=== PATIENT | female | born 1995 | race Caucasian/White ===

== ENCOUNTER → 2019-04-07 | Outpatient (CLI) | payer BC, MEDICAID ==
--- NOTE | 2019-04-07 13:11 | Diagnostic Imaging Report ---
INDICATION: patient, survey. TECHNIQUE: Multiple real-time grayscale images were obtained over the gravid uterus. COMPARISON: None FINDINGS: A single live intrauterine fetus is seen measuring 20 weeks 2 days in size with sonographic EDC of 08/23/2019. Fetus is in breech presentation. Amniotic fluid index is normal at 12.1 cm. Placenta is posterior with no evidence of previa. heart rate is 152 BPM. There is no evidence of subchorionic bleed. Cervical length was 4.4 cm. survey showed normal-appearing kidneys, bladder, stomach, and intracranial ventricles. Normal-appearing four-chamber heart view is seen. Normal-appearing three-vessel cord and cord insertion are noted. Views of the spine were unremarkable. The adnexa could not be visualized. Biometrical measurements are as follows: Biparietal 4.53 cm, age 19 weeks 5 days. Head circumference 17.73 cm, age 22 weeks 0 days. Abdominal circumference 15.12 cm, age 23 weeks 0 days. Femur length 3.31 cm, age 20 weeks 3 days. Sonographic estimate age: 20 weeks 2 days. Sonographic estimated date of delivery: 08/23/2019. Estimated Weight: 346 gm (+/- 51 gm). LMP percentile: 47%. heart rate: 152 beats per minute. number: 1 of 1. IMPRESSION: Single live intrauterine fetus measuring 20 weeks 2 days in size with no detectable abnormalities. Dictated by: Dictated on workstation # [id number]
== END ==
LOC: RAD 10:01
PROVIDERS: ATTEND Obstetrics & Gynecology
DX: Z36.9 Encounter for antenatal screening, unspecified (principal); Z3A.20 20 weeks gestation of pregnancy
CPT/HCPCS: 76805

== ENCOUNTER 2019-08-19 11:19 | Inpatient (IN) | payer BC ==
[~2019-08-19] VITALS: Ht 160 cm; Wt 76.3 kg
[2019-08-19] VITALS (41 sets, daily range): BP systolic 103–152; BP diastolic 55–97
--- NOTE | 2019-08-19 11:07 | NUR ---
RAEANN FLYNN presented to unit via ambulation from ED, accompanied by s/o, with c/o contractions since 199 this a.m. Pt. weighed, gowned, voided, and to bed. EFHM and TOCO applied, VS taken. Pt. oriented to bed controls, call light, TV, heat, and A/C controls.
--- NOTE | 2019-08-19 11:29 | NUR ---
SVE per this RN. loose 3cm, 100%, bag of fluid noted with exam. small amount bloody show present with SVE
--- NOTE | 2019-08-19 11:34 | NUR ---
was called with SVE, monitor tracing and admit c/o's. no new orders received @ time.
--- NOTE | 2019-08-19 11:51 | NUR ---
ULISES per . admission orders received.
[2019-08-19] MEDS ORDERED: D5 LR IV SOLUTION 1,000 ML IV SCH (12:00)
[2019-08-19] MEDS ORDERED: LACTATED RINGERS 1,000 ML IV ONE ×2 (12:05)
[2019-08-19] MEDS ORDERED: D5 LR IV SOLUTION 1,000 ML IV ONE (12:05)
--- NOTE | 2019-08-19 12:20 | NUR ---
#20g IV to Rt.hand x2 attempts by this RN. site patent, secured with opsite. admission labs collected from IV site prior to IVF's infusing. pt tolerated well.
--- NOTE | 2019-08-19 12:34 | History & Physical-OB ---
OB - Chief Complaint & HPI Date/Time Date of Admission: Date of Admission: 08/19/2019 Date seen by a Provider: August 19, 2019 Time Seen by a Provider: 12:00 Chief Complaint/History OB-Reason for Admission/Chief: Onset of Labor Hx : 1 Hx Para: 0 Expected Date of Delivery: August 23, 2019 Gestational Age in Weeks: 39 Gestational Age in Days: 3 Admission Nurse Assessment Rev: Yes History of Labs O pos Antibody neg RI RPR NR HBsAg NR HCsAg NR HIV NR GC neg GBS neg Allergies and Home Medications Allergies Coded Allergies: No Known Drug Allergies (Unverified , 08/19/19) Patient Home Medication List Home Medication List Reviewed: Yes OB - History Hx of Present Care: Yes Ultrasounds: Normal mid trimester US Obstetrical Complications: None Medical Complications: None Obstetrical History Hx : 1 Hx Para: 0 Patient Past Medical History n/a Social History/Family History Recreational Drug Use: No OB - Admission Exam Physical Exam Vitals: Vital Signs 08/19/19 11:23 Temp 37.0 Pulse 120 Resp 18 Pulse Ox 96 O2 Delivery Room Air HEENT: NCAT Heart: Rhythm Normal Lungs: Clear Abdomen: Gravid Extremities: Normal Reflexes: Normal Cervical Dilatation: 3cm Effacement: 75% Station: -1 Membranes: Intact Heart Rate: 130's Accelerations: Accelerations Present Decelerations: No Decelerations Short Term Variability: Present Client Services Director Variability: Average (6-25) Contractions on Admission: < 5 Minutes Apart OB - Assessment/Plan/Diagnosis Assessment Assessment: active labor Admission Dx 24 yo @ 39.3 weeks Active labor GBS neg Admission Status: Inpatient Order (span 2 midnights) Reason for Inpatient Admission: Active labor at term Plan Plan: Expectant Management LEATHA FULLER DO August 19, 2019 12:34
--- NOTE | 2019-08-19 12:35 | NUR ---
report given to SHEY García.
[2019-08-19] MEDS ORDERED: OXYTOCIN PRE-MIX DRIP 500 ML IV SCH (12:39)
[2019-08-19 12:40] LABS: BASOPHILS % (AUTO) 0 % (0-10); EOSINOPHILS % (AUTO) 0 % (0-10); HEMATOCRIT 36 % (35-52); HEMOGLOBIN 12.5 G/DL (11.5-16.0); LYMPHOCYTES # (AUTO) 1.5 X 10^3 (1.0-4.0); LYMPHOCYTES % (AUTO) 10 % (12-44); MEAN CORPUSCULAR HEMOGLOBIN 32 PG (25-34); MEAN CORPUSCULAR HGB CONC 35 G/DL (32-36); MEAN CORPUSCULAR VOLUME 93 FL (80-99); MEAN PLATELET VOLUME 10.2 FL (7.4-10.4); MONOCYTES # (AUTO) 0.9 X 10^3 (0.0-1.0); MONOCYTES % (AUTO) 6 % (0-12); NEUTROPHILS # (AUTO) 12.6 X 10^3 (1.8-7.8); NEUTROPHILS % (AUTO) 84 % (42-75); PLATELET COUNT 188 10^3/uL (130-400); RED CELL DISTRIBUTION WIDTH 12.6 % (10.0-14.5)
[2019-08-19 12:45] LABS: BILIRUBIN,URINE NEGATIVE (NEGATIVE); CLARITY,URINE CLEAR; COLOR,URINE YELLOW; GLUCOSE, URINE (UA) NEGATIVE (NEGATIVE); KETONES,URINE NEGATIVE (NEGATIVE); LEUKOCYTE ESTERASE ,URINE NEGATIVE (NEGATIVE); NITRITE,URINE NEGATIVE (NEGATIVE); PH,URINE 5.5 (5-9); PROTEIN,URINE NEGATIVE (NEGATIVE)
[2019-08-19] MEDS ORDERED: fentaNYL 2 mcg/ml BUPIVA 0.125 100 ML ONE (12:52)
[2019-08-19 12:57] LABS: LYMPHOCYTES % (MANUAL) 7 %; MONOCYTES % (MANUAL) 7 %; NEUTROPHILS % (MANUAL) 85 %; RBC MORPH NORMAL
[2019-08-19 12:58] LABS: TOXIC GRANULATION/VACUOLAZATIO 1+
[2019-08-19 13:03] LABS: BACTERIA,URINE TRACE /HPF; SQUAMOUS EPITHELIAL CELL,UR 0-2 /HPF
--- OUTSIDE RECORDS SUMMARY | 2019-08-19 13:11 | XMS REPORT | Continuity of Care Document ---
Demographics Preferred Language Unknown Marital Status Unknown Worship Affiliation Unknown Race Unknown Ethnic Group Unknown Author Organization Unknown Address Unknown Phone Unavailable Allergies There is no data. Medications There is no data. Problems Date Dx Coded Attending Type Code Diagnosis Diagnosed By 07/21/2014 EITAN LUCIA MD Ot 346.9 0 04/06/2019 EITAN LUCIA MD Ot 346.9 0 MIGRAINE UNSPECIFIED W/O INTRACT MGRN W/ 04/07/2019 EITAN LUCIA MD Ot 346.9 0 MIGRAINE UNSPECIFIED W/O INTRACT MGRN W04/08/2019 LEATHA FULLER DO Ot Z36.9 ENCOUNTER FOR SCREENING, UNSPE 04/08/2019 LEATHA FULLER DO Ot Z3A.20 20 WEEKS GESTATION OF 04/21/2019 LEATHA FULLER DO Ot Z36.9 ENCOUNTER FOR SCREENING, UNSPE 04/21/2019 LEATHA FULLER DO Ot Z3A.20 20 WEEKS GESTATION OF Procedures There is no data. Results Test Result Range Pap IG, Ct-Ng, rfx HPV ASCU - 05/18/17 1 5:40 Chlamydia, Nuc. Acid Amp Positive Negat ilana Gonococcus, Nuc. Acid Amp Negative Nega tive DIAGNOSIS: Comment Specimen adequacy: Comment Performed by: Comment QC reviewed by: Comment . . Pathologist provided ICD10: Comment Note: Comment Test Methodology: Comment . Comment Chlamydia/GC Amplification - 06/22/17 13 :30 Chlamydia trachomatis, DARON Negative Neg ative Neisseria gonorrhoeae, DARON Negative Neg ative Complete blood count (CBC) with automate d white blood cell (WBC) differential - 08/19/19 12:20 Blood leukocytes automated count (number/volume) 15.0 10*3/uL 4.3-11.0 Blood erythrocytes automated count (number/volume) 3.88 10*6/uL 4.35-5.85 Venous blood hemoglobin measurement (mass/volume) 12.5 g/dL 11.5-16.0 Blood hematocrit (volume fraction) 36 % 35-52 Automated erythrocyte mean corpuscular volume 93 [ foz_us] 80-99 Automated erythrocyte mean corpuscular h emoglobin (mass per erythrocyte) 32 pg 25-34 Automated erythrocyte mean corpuscular h emoglobin concentration measurement (mass/volume) 35 g/dL 32-36 Automated erythrocyte distribution width ratio 12. 6 % 10.0- 14.5 Automated blood platelet count (count/volume) 188 10*3/uL 130-400 Automated blood platelet mean volume measurement 10.2 [foz_us] 7.4-10.4 Automated blood neutrophils/100 leukocytes 84 % 42-75 Automated blood lymphocytes/100 leukocytes 10 % 12-44 Blood monocytes/100 leukocytes 6 % 0-12 Automated blood eosinophils/100 leukocytes 0 % 0-10 Automated blood basophils/100 leukocytes 0 % 0-10 Blood neutrophils automated count (number/volume) 12.6 10*3 1.8-7.8 Blood lymphocytes automated count (number/volume) 1.5 10*3 1.0-4.0 Blood monocytes automated count (number/volume) 0. 9 10*3 0.0-1.0 Automated eosinophil count 0.0 10*3/uL 0 .0-0.3 Automated blood basophil count (count/volume) 0.0 10*3/uL 0.0-0.1 Manual absolute plasma cell count - 05/0 05/09 12:20 Blood monocytes/100 leukocytes 7 % NRG Manual blood segmented neutrophils/100 leukocytes 85 % NRG Manual blood lymphocytes/100 leukocytes 7 % NRG Blood erythrocyte morphology finding identification NORMAL NRG Blood toxic granules detection by light microscopy 1+ NRG Complete urinalysis with reflex to cultu re - 08/19/19 12:20 Urine color determination YELLOW NRG Urine clarity determination CLEAR NR G Urine pH measurement by test strip 5.5 5-9 Specific gravity of urine by test strip 1.025 1.016-1.022 Urine protein assay by test strip, semi-quantitative NEGATIVE NEGATIVE Urine glucose detection by automated test strip NE GATIVE NEGATIVE Erythrocytes detection in urine sediment by light micr oscopy NEGATIVE NEGATIVE Urine ketones detection by automated test strip NE GATIVE NEGATIVE Urine nitrite detection by test strip NEGATIVE NEGATIVE Urine total bilirubin detection by test strip NEGA TIVE NEGATIVE Urine urobilinogen measurement by automated test strip (mass/volume) 0.2 mg/dL < = 1.0 Urine leukocyte esterase detection by dipstick NEG ATIVE NEGATIVE Automated urine sediment erythrocyte cou nt by microscopy (number/high power field) NONE NRG Automated urine sediment leukocyte count by microscopy (number/high power field) NONE NRG Bacteria detection in urine sediment by light microsco py TRACE NRG Squamous epithelial cells detection in u rine sediment by light microscopy 0-2 NRG Crystals detection in urine sediment by light microsco py NONE NRG Casts detection in urine sediment by light microscopy NONE NRG Mucus detection in urine sediment by light microscopy SMALL NRG Complete urinalysis with reflex to culture NO NRG Blood type T Indirect antibody screen pa marlo - 08/19/19 12:20 WRISTBAND NUMBER [id number] NRG ABO+Rh group OP NRG Blood group antibody screen NEGATIVE NR G Encounters ACCT No. Visit Date/Time Discharge Status Pt. Type Provider Facility Loc./Unit Complaint [id number] 05/23/2017 13:12:00 Document Registration [id number] 04/07/2019 10:01:00 019 23:59:59 CLS Outpatient LEATHA FULLER DO Via [facility] RAD [id number] 07/10/2014 08:51:00 015 23:59:59 CLS Outpatient EITAN LUCIA MD [facility] RT MIGRAINE HEADACHES [id number] 08/19/2019 12:41:00 Document Registration [id number] 06/25/2017 09:24:00 Document Registration
--- OUTSIDE RECORDS SUMMARY | 2019-08-19 13:11 | XMS REPORT ---
Author Author [employer] Organization [employer] Address [address] [address] Care Team Providers Care Dispensary Technician Name Role Phone BI, WILFRIDO Unavailable Unavailable BI, WILFRIDO Unavailable Unavailable BI, WILFRIDO Unavailable Unavailable EITAN LUCIA MD Unavailable FENCELESTINO DO, LEATHA S Unavailable Unavailable Allergies No Information Medications No Information Problems Problem Normalized Date of Normalized Normalized Provider Fac ility Classification Problem(s) Problem Problem Problem Sta tus Onset/Resoluti Duration on Residual 20 weeks Episodic Active LEATHA LIRIANOCELESTINO [facility] Via codes; gestation of , DO [place] unclassified [facility] - (2 sources.) [place] ([address]) Immunizations Contact with Episodic Active [facility] ospital and screening or exposure to [place] of for infectious venereal [place] disease (2 diseases [place] ([address]) sources.) Other Encounter for Episodic Active [facility] ital screening for other [place] of suspected screening for [place] conditions malignant [place] ([address]) (not mental neoplasm of disorders or breast infectious Translations: disease) (6 [ OTHER sources.) SCREENING BREAST EXAMINATION, ENCOUNTER FOR SCREENING, UNSPE] Contraceptive Encounter for Episodic Active [facility] and surveillance [place] of procreative of [place] management (4 contraceptive [place] ([address]) sources.) pills Translations: [ ENCOUNTER FOR SURVEILLANCE OF CONTRACEPTIVE PILL] Headache; Migraine, Chronic Active EITAN LUCIA [facility] Via including unspecified, MD [place] migraine (2 without Hospital - sources.) mention of [place] intractable ([address]) migraine without mention of status migrainosus Procedures No Information Immunizations No Information Results Test Name Value Interpretation Reference Range Date Time Fa cility (Normalized) (Normalized) (Medline Reference) No panel information on 2017-06-25 C. trachomatis no information (no code) 06-25-2017 [facility] ([id number]) DNA DARON+probe Ql 08:31-0500 (Unsp spec) N. gonorrhoeae no information (no code) 06-25-2017 [facility] ([id number]) DNA DARON+probe Ql 08:31-0500 (Unsp spec) No panel information on 2017-05-23 C. trachomatis no information (A) 05-23-2017 [facility] ([id number]) DNA DARON+probe Ql 12:59-0500 (Unsp spec) N. gonorrhoeae no information (no code) 05-23-2017 [facility] ([id number]) DNA DARON+probe Ql 12:59-0500 (Unsp spec) No panel information on 2017-05-22 Fitness Manager Cyto Comment (no code) 05-22-2017 [facility] (0 0000) stain ID Nom 16:06-0500 (Cervical or vaginal smear or scraping) Cytology report Comment (no code) 05-22-2017 [facility] (0 0000) Cyto stain.thin 16:06-0500 prep Doc (Cervical or vaginal smear or scraping) Microscopic . (no code) 05-22-2017 [facility] ([id number] ) observation 16:06-0500 Note: Comment (no code) 05-22-2017 [facility] ([id number] ) 16:06-0500 Pathologist Comment (no code) 05-22-2017 [facility] ([id number] ) provided ICD10: 16:06-0500 Pathology report Comment (no code) 05-22-2017 [facility] ( [id number]) final diagnosis 16:06-0500 Narrative QC reviewed by: Comment (no code) 05-22-2017 [facility] (0 0000) 16:06-0500 Statement of Comment (no code) 05-22-2017 [facility] (0000 0) adequacy Cyto 16:06-0500 stain Interp (Cervical or vaginal smear or scraping) no information Comment (no code) 05-22-2017 [facility] (00 000) 16:06-0500 Vital Signs No Information Interventions No Information Plan of Treatment No Information Goals No Information Social History No Information Functional Status No Information Mental Status No Information Encounters Encounter Normalized Encounter Encounter Diagnosis Care Provi avinash Organization Date Type 04-07-2019 Patient encounter no information no name (no phone) no organization name procedure (no phone) 05-18-2017 Patient encounter no information no name (no phone) no organization name - procedure (no phone) 05-19-2017 07-10-2014 Patient encounter no information no name (no phone) no organization name procedure (no phone) no information Encounter for no name (no phone) no organiza tion name gynecological (no phone) examination (general) (routine) with abnormal findings Medical Equipment No Information Payers Normalized Payer Value [facility] [place] no information Additional Source Comments This clinical document has been generated using [employer] software that has been certified by the Office of the National Coordinator for Health Information Technology (ONC 15.99.04.3023.Diam.[id number]) and the National Committee for Emergency Medicine (NCQA, as an eMeasure certified technology). FOR RECORDS PERTAINING TO PATIENTS WHO ARE OR HAVE BEEN ENROLLED IN A CHEMICAL D EPENDENCY/SUBSTANCE ABUSE PROGRAM, SOME INFORMATION MAY BE OMITTED. This clinica l summary was aggregated from multiple sources. Caution should be exercised in using it in the provision of clinical care. This summary normalizes information from multiple sources, and as a consequence, information in this document may ma terially change the coding, format and clinical context of patient data. In adrian tion, data may be omitted in some cases. CLINICAL DECISIONS SHOULD BE BASED ON T HE PRIMARY CLINICAL RECORDS. TRA. provides no warranty or guara ntee of the accuracy or completeness of information in this document.The followi ng information is based on time limited clinical information
[2019-08-19] MEDS ORDERED: fentaNYL 2 mcg/ml BUPIVA 0.125 100 ML IV SCH (14:00)
[2019-08-19] MEDS ORDERED: NALOXONE 0.4 MG/ML 1 ML (NARCAN) VIAL IV PRN (14:00)
[2019-08-19] MEDS ORDERED: CATHETER FLUSH 10 ML SYR IV PRN (14:00)
[2019-08-19] MEDS ORDERED: LIDOCAINE/EPI 2% 1:200,00 (XYLOCAINE) 20 ML VIAL ONE (14:56)
[2019-08-19] MEDS ORDERED: LIDOCAINE/EPI 2% 1:200,00 (XYLOCAINE) 20 ML VIAL INJ ONE (16:50)
[2019-08-19] MEDS: OXYTOCIN PRE-MIX DRIP 500 ML IV SCH ×2 (17:10→17:45)
--- NOTE | 2019-08-19 17:55 | OB Labor & Delivery Record ---
L&D History Date of Service Date of Service: August 19, 2019 History Expected Date of Delivery: August 23, 2019 Gestational Age in Weeks: 39 Hx : 1 Hx Para: 0 Complications Events: Routine care Operative Indications (Cesarea: N/A-Vaginal Delivery Intrapartal Events: None L&D Stage1 Stage One Onset of Labor - Date: August 19, 2019 Monitors and Tracing Monitor Mode: External Heart Rate: 140 Monitor Decelerations: Variable Station: -1 Service Girl Variability: Average (6-10) Short Term Variability: Present Presentation: Vertex Vital Signs VS - Last 72 Hours, by Label 08/19/19 08/19/19 08/19/19 08/19/19 11:20 11:20 11:23 12:43 Temp 37.0 37.0 37.0 36.9 Pulse 120 120 120 99 Resp 18 18 18 18 B/P (MAP) 112/72 (85) 106/70 (82) Pulse Ox 96 96 98 O2 Delivery Room Air Room Air Room Air Room Air 08/19/19 08/19/19 08/19/19 08/19/19 13:11 13:40 13:53 14:00 Temp 36.9 Pulse 101 91 102 Resp 18 18 18 B/P (MAP) 122/71 (88) 122/77 (92) 116/69 (85) Pulse Ox 99 100 O2 Delivery Room Air Room Air Room Air Room Air 08/19/19 08/19/19 08/19/19 08/19/19 14:02 14:04 14:05 14:08 Pulse 103 103 99 105 Resp 18 18 18 18 B/P (MAP) 117/66 (83) 116/66 (83) 112/68 (83) 117/72 (87) Pulse Ox 99 100 100 100 O2 Delivery Room Air Room Air Room Air Room Air 08/19/19 08/19/19 08/19/19 08/19/19 14:11 14:14 14:17 14:20 Pulse 91 84 96 92 Resp 18 18 18 18 B/P (MAP) 113/68 (83) 106/60 (75) 106/66 (79) 107/65 (79) Pulse Ox 100 100 100 100 O2 Delivery Room Air Room Air Room Air Room Air 5/1/20 5/1/20 5/1/20 14:23 14:26 14:29 Pulse 89 85 88 Resp 18 18 18 B/P (MAP) 110/67 (81) 115/70 (85) 116/72 (87) Pulse Ox 100 100 100 O2 Delivery Non Rebreather Non Rebreather Non Rebreather O2 Flow Rate 15.00 15.00 15.00 Rupture of Membranes Spontaneous Ruture of Membrane: No Amniotic Membrane Rupture Time: 12:30 Amniotic Membrane Fluid Desc.: Clear Vaginal Bleeding Description: Normal Show Induction/Anesthesia Epidural Cath Placement - Time: 1358 Progress/Notes No augmentation other than AROM done, patient progressed to complete and + 2 station L&D Stage2 Stage Two Stage II Date: August 19, 2019 Monitors and Tracing Monitor Mode: External Heart Rate: 140 Monitor Decelerations: Prolonged Senior Living Variability: Average (6-10) Short Term Variability: Present Position: Right Occiput Anterior Presentation: Vertex Cord Descript/Complications Cord Vessel Description: 3 Vessels Complications Due to distress and limited effectiveness with maternal pushing, fhr in the 70s. RML made, and kiwi suction applicator placed at flexion point which assisted in low extraction delivery. nuchal cord x 1 Delivery Type Infant Delivery Method: Low Vacuum Extraction Anterior Shoulder: Right Episiotomy/Perineal Laceration Laceraction(s)/Extensions: Yes Episiotomy Description: Right Mediolateral Degree (describe repair) RML repaired using 3-0 and 2-0 vicryl suture Condition of Delivery 1 minute Comment: 7 5 minute Comment: 9 Notes Live male 9lbs 3 oz Condition of Condition of : Living Exam: No Observed Abnormalities Resuscitation Resuscitation: N/A - Spontaneous Resp L&D Stage3 Stage Three Stage III Date: August 19, 2019 Pictocin Pitocin Administration Comment: 30 mu wide open Placenta Delivery Placenta Delivery: Spontaneous Delivery Summary Summary Estimated blood loss (mL): 400 Attending at delivery: Leatha Fuller DO Condition of Delivery Examined: Cervix Examined, Uterus Explored Post Hemorrhage: No Condition of Mother stable Condition of (s) stable LEATHA FULLER DO August 19, 2019 17:55
[2019-08-19] MEDS ORDERED: TETANUS,DIPTH,PERTUSS P/F (BOOSTRIX) 0.5 ML VIAL IM ONE (18:00)
[2019-08-19] MEDS ORDERED: HYDROcodone/APAP 5 MG/325 MG (LORTAB) TAB PO PRN (18:00)
[2019-08-19] MEDS ORDERED: DIBUCAINE (NUPERCAINAL) 1% OINT 30 GM TOP PRN (18:00)
[2019-08-19] MEDS ORDERED: MEASLES,MUMPS,RUBELLA 1 EA INJ SQ ONE (18:00)
[2019-08-19] MEDS ORDERED: BENZOCAINE/MENTHOL (DERMOPLAST) 60 ML CAN TP PRN (18:00)
[2019-08-19] MEDS: IBUPROFEN 600 MG (MOTRIN) TAB PO SCH (18:05)
[2019-08-19] MEDS: WITCH HAZEL(TUCKS) 40 EA JAR TOP PRN (18:06)
--- NOTE | 2019-08-19 19:13 | NUR ---
TRANSFERRED TO ROOM 311 VIA W/C ACC BY THIS RN, S.O. PUSHING INFANT IN CRIB. ASSISTED TO BED. ICE PACK PLACED ON PERINEUM. FF U/1. VAG FLOW LT/MOD RUBRA. ORIENTED TO SURROUNDINGS. ORIENTED TO CALL LIGHT OPERATION. INFORMATION PAPERS AND MENU GIVEN.
[2019-08-19] MEDS: DOCUSATE SODIUM 100 MG (COLACE) CAP PO SCH (20:16)
--- NOTE | 2019-08-19 20:45 | NUR ---
Pt. ambulated to bathroom without difficulty. Positive void noted.
[2019-08-19] MEDS ORDERED: CATHETER FLUSH 10 ML SYR IV SCH (22:00)
[2019-08-20] MEDS: IBUPROFEN 600 MG (MOTRIN) TAB PO SCH ×4 (00:28→18:39)
[2019-08-20 00:33] VITALS: BP 98/57
[2019-08-20 04:00] VITALS: BP 106/63
[2019-08-20 06:34] LABS: BASOPHILS % (AUTO) 0 % (0-10); EOSINOPHILS % (AUTO) 0 % (0-10); HEMATOCRIT 27 % (35-52); HEMOGLOBIN 9.2 G/DL (11.5-16.0); LYMPHOCYTES # (AUTO) 1.7 X 10^3 (1.0-4.0); LYMPHOCYTES % (AUTO) 12 % (12-44); MEAN CORPUSCULAR HEMOGLOBIN 32 PG (25-34); MEAN CORPUSCULAR HGB CONC 34 G/DL (32-36); MEAN CORPUSCULAR VOLUME 95 FL (80-99); MEAN PLATELET VOLUME 10.4 FL (7.4-10.4); MONOCYTES # (AUTO) 1.4 X 10^3 (0.0-1.0); MONOCYTES % (AUTO) 10 % (0-12); NEUTROPHILS # (AUTO) 10.5 X 10^3 (1.8-7.8); NEUTROPHILS % (AUTO) 77 % (42-75); PLATELET COUNT 149 10^3/uL (130-400); RED CELL DISTRIBUTION WIDTH 12.7 % (10.0-14.5); WHITE BLOOD COUNT 13.6 10^3/uL (4.3-11.0)
--- NOTE | 2019-08-20 07:47 | Postpartum Progress Note ---
Note Note Day # 1 Subjective: Patient is without complaints. Ambulating, voiding. Tolerating a regular diet without nausea or vomiting. Normal lochia. Pain is well controlled with oral pain medications. Objective: Physical Exam: General - Alert and oriented, no apparent distress Abdomen - Soft, appropriately tender to palpation, non-distended, fundus firm at umbilicus Extremities - no edema, negative Justin's bilaterally Assessment: PPD 1 VAVD Acute blood loss anemia Plan: Routine care. Encourage breast feeding. Encourage ambulation. Ferrous sulfate supplementation. Plan for discharge tomorrow Vitals - Labs Vital Signs - I&O Vital Signs Date Time Temp Pulse Resp B/P (MAP) Pulse Ox O2 Delivery O2 Flow Rate FiO2 08/20/19 04:00 36.8 108 16 106/63 (77) 97 Room Air 08/20/19 00:33 36.9 105 16 98/57 (71) 98 Room Air 08/19/19 20:15 37.2 110 16 110/64 (79) 97 Room Air 08/19/19 18:51 37.8 120 18 110/66 (81) Room Air 08/19/19 18:45 121 18 103/58 (73) Room Air 08/19/19 18:22 106 18 111/61 (78) Room Air 08/19/19 18:04 37.3 110 18 107/59 (75) Room Air 08/19/19 17:42 116 18 110/62 (78) Room Air 08/19/19 17:28 92 18 114/78 (90) Room Air 08/19/19 17:15 116 18 111/58 (75) Room Air 08/19/19 17:00 120 20 104/55 (71) Room Air 08/19/19 16:43 112 20 152/97 (115) Non Rebreather 15.00 08/19/19 16:28 93 18 107/70 (82) 97 Non Rebreather 15.00 08/19/19 16:15 95 18 109/70 (83) 100 Non Rebreather 15.00 08/19/19 15:58 37.1 90 18 110/62 (78) 100 Non Rebreather 15.00 08/19/19 15:43 90 18 119/67 (84) 98 Non Rebreather 15.00 08/19/19 15:30 90 18 119/62 (81) 99 Room Air 08/19/19 15:24 Room Air 08/19/19 15:12 90 18 118/72 (87) 100 Non Rebreather 15.00 08/19/19 14:58 93 18 116/70 (85) 100 Non Rebreather 15.00 08/19/19 14:54 94 18 117/71 (86) 100 Non Rebreather 15.00 08/19/19 14:50 86 18 118/72 (87) 100 Non Rebreather 15.00 08/19/19 14:43 93 18 123/71 (88) 100 Non Rebreather 15.00 08/19/19 14:40 36.8 86 18 114/71 (85) 100 Non Rebreather 15.00 08/19/19 14:37 90 18 112/72 (85) 100 Non Rebreather 15.00 08/19/19 14:34 91 18 112/68 (83) 100 Non Rebreather 15.00 08/19/19 14:31 85 18 114/69 (84) 100 Non Rebreather 15.00 08/19/19 14:29 88 18 116/72 (87) 100 Non Rebreather 15.00 08/19/19 14:26 85 18 115/70 (85) 100 Non Rebreather 15.00 08/19/19 14:23 89 18 110/67 (81) 100 Non Rebreather 15.00 08/19/19 14:20 92 18 107/65 (79) 100 Room Air 08/19/19 14:17 96 18 106/66 (79) 100 Room Air 08/19/19 14:14 84 18 106/60 (75) 100 Room Air 08/19/19 14:11 91 18 113/68 (83) 100 Room Air 08/19/19 14:08 105 18 117/72 (87) 100 Room Air 08/19/19 14:05 99 18 112/68 (83) 100 Room Air 08/19/19 14:04 103 18 116/66 (83) 100 Room Air 08/19/19 14:02 103 18 117/66 (83) 99 Room Air 08/19/19 14:00 102 18 116/69 (85) 100 Room Air 08/19/19 13:53 36.9 99 Room Air 08/19/19 13:40 91 18 122/77 (92) Room Air 08/19/19 13:11 101 18 122/71 (88) Room Air 08/19/19 12:43 36.9 99 18 106/70 (82) 98 Room Air 08/19/19 11:23 37.0 120 18 96 Room Air 08/19/19 11:20 37.0 120 18 112/72 (85) Room Air 08/19/19 11:20 37.0 120 18 96 Room Air I & O 08/20/19 07:00 Intake Total 3000 ml Output Total 125 ml Balance 2875 ml Labs Laboratory Tests 08/19/19 12:20: White Blood Count 15.0H, Red Blood Count 3.88L, Hemoglobin 12.5, Hematocrit 36, Mean Corpuscular Volume 93, Mean Corpuscular Hemoglobin 32, Mean Corpuscular Hemoglobin Concent 35, Red Cell Distribution Width 12.6, Platelet Count 188, Mean Platelet Volume 10.2, Neutrophils (%) (Auto) 84H, Lymphocytes (%) (Auto) 10L, Monocytes (%) (Auto) 6, Eosinophils (%) (Auto) 0, Basophils (%) (Auto) 0, Neutrophils # (Auto) 12.6H, Lymphocytes # (Auto) 1.5, Monocytes # (Auto) 0.9, Eosinophils # (Auto) 0.0, Basophils # (Auto) 0.0, Neutrophils % (Manual) 85, Lym phocytes % (Manual) 7, Monocytes % (Manual) 7, Toxic Granulation 1+, Blood Morphology Comment NORMAL, Urine Color YELLOW, Urine Clarity CLEAR, Urine pH 5.5, Urine Specific Garrett 1.025H, Urine Protein NEGATIVE, Urine Glucose (UA) NEGATIVE, Urine Ketones NEGATIVE, Urine Nitrite NEGATIVE, Urine Bilirubin NEGATIVE, Urine Urobilinogen 0.2, Urine Leukocyte Esterase NEGATIVE, Urine RBC (Auto) NEGATIVE, Urine RBC NONE, Urine WBC NONE, Urine Squamous Epithelial Cells 0-2, Urine Crystals NONE, Urine Bacteria TRACE, Urine Casts NONE, Urine Mucus SMALLH, Urine Culture Indicated NO 08/20/19 06:08: White Blood Count 13.6H, Red Blood Count 2.86L, Hemoglobin 9.2#L, Hematocrit 27L , Mean Corpuscular Volume 95, Mean Corpuscular Hemoglobin 32, Mean Corpuscular Hemoglobin Concent 34, Red Cell Distribution Width 12.7, Platelet Count 149, Mean Platelet Volume 10.4, Neutrophils (%) (Auto) 77H, Lymphocytes (%) (Auto) 12, Monocytes (%) (Auto) 10, Eosinophils (%) (Auto) 0, Basophils (%) (Auto) 0, Neutrophils # (Auto) 10.5H, Lymphocytes # (Auto) 1.7, Monocytes # (Auto) 1.4H, Eosinophils # (Auto) 0.0, Basophils # (Auto) 0.0 LEATHA FULLER DO August 20, 2019 07:47
[2019-08-20] MEDS ORDERED: IBUP-844 PO (07:49)
[2019-08-20] MEDS ORDERED: DIBU30OI TOP (07:49)
[2019-08-20] MEDS ORDERED: FERR325T18 PO (07:49)
[2019-08-20] MEDS ORDERED: BENZ78AE2 TP (07:49)
[2019-08-20] MEDS ORDERED: HYDR-83 PO (07:49)
[2019-08-20] MEDS ORDERED: DCS100C PO (07:49)
--- NOTE | 2019-08-20 07:52 | Discharge Inst-Women's Service ---
Discharge Inst-Women's Serv Depart Medication/Instructions New, Converted or Re-Newed RX: RX on Chart Final Diagnosis PPD 2 VAVD Problems Reviewed?: Yes Consults/Follow Up Additional Follow Up: Yes Orders/Referrals Dr. Fuller in 6 weeks Activity Activity: Activity as Tolerated Driving Instructions: No Driving for 1 Week NO SMOKING: NO SMOKING Nothing Inside Vagina: No Douching, No [place], No Tampons Diet Discharge Diet: No Restrictions Symptoms to Report to : Bleeding Excessive, Pain Increased, Fever Over 101 Degrees F, Vaginal Bleeding Increase, Questions/Concerns For Any Problems or Questions: Contact Your Physician LEATHA FULLER DO August 20, 2019 07:52
--- NOTE | 2019-08-20 08:00 | NUR ---
here to see pt.
--- NOTE | 2019-08-20 09:34 | Anesthesia-Regional Post-Op ---
Regional Patient Condition Mental Status: Alert, Oriented x3 Circulation: Same as Pre-Op Headache: Absent Sensation: Full Recovery Motor Block: Absent Post Op Complications Complications None Follow Up Care/Instructions Patient Instructions None needed. Anesthesia/Patient Condition Patient is doing well, no complaints, stable vital signs, no apparent adverse anesthesia problems. No complications reported per nursing. FELIBERTO BECKMAN CRNA August 20, 2019 09:33
[2019-08-20 10:00] VITALS: BP 101/66
--- NOTE | 2019-08-20 10:00 | NUR ---
initial shift assessment completed, see interventions for further.
[2019-08-20] MEDS: FERROUS SULF 325 MG (IRON) TAB PO SCH (11:53)
[2019-08-20] MEDS: PRENATAL VITAMIN 1 EA TAB PO SCH (11:53)
[2019-08-20] MEDS: DOCUSATE SODIUM 100 MG (COLACE) CAP PO SCH ×2 (11:53→20:19)
[2019-08-20 15:25] VITALS: BP 104/64
--- NOTE | 2019-08-20 19:11 | NUR ---
report given to SHEY Gonzalez.
[2019-08-20] MEDS: WITCH HAZEL(TUCKS) 40 EA JAR TOP PRN (20:19)
[2019-08-20 21:00] VITALS: BP 108/60
--- NOTE | 2019-08-20 21:00 | NUR ---
pt sitting up in recliner feeding nb. assessment completed. s/o at bedside. pt denies any needs at this time. will continue to monitor.
[2019-08-21] MEDS: IBUPROFEN 600 MG (MOTRIN) TAB PO SCH ×3 (00:19→13:00)
[2019-08-21 02:00] VITALS: BP 101/59
[2019-08-21 08:56] VITALS: BP 107/58
--- NOTE | 2019-08-21 08:56 | Postpartum Progress Note ---
Note Note Day # 2 Subjective: Patient is without complaints. Ambulating, voiding. Tolerating a regular diet without nausea or vomiting. Normal lochia. Pain is well controlled with oral pain medications. Objective: Physical Exam: General - Alert and oriented, no apparent distress Abdomen - Soft, appropriately tender to palpation, non-distended, fundus firm at umbilicus Extremities - no edema, negative Justin's bilaterally Assessment: PPD 2 VAVD Acute blood loss anemia Plan: Routine care. Encourage breast feeding. Encourage ambulation. Ferrous sulfate supplementation. Plan for discharge today Vitals - Labs Vital Signs - I&O Vital Signs Date Time Temp Pulse Resp B/P (MAP) Pulse Ox O2 Delivery O2 Flow Rate FiO2 08/21/19 02:00 36.3 90 18 101/59 (73) 98 Room Air 08/20/19 21:00 36.6 115 18 108/60 (76) 98 Room Air 08/20/19 15:25 36.9 102 18 104/64 (77) 98 Room Air 08/20/19 10:00 36.6 109 18 101/66 (78) 98 Room Air LEATHA FULLER DO August 21, 2019 08:56
--- NOTE | 2019-08-21 08:56 | NUR ---
AM shift assessment completed and vital signs obtained, see interventions. Plan of care reviewed with patient. Patient verbalizes understanding and denies any current questions or concerns at this time. Scheduled PNV, Iron, and Colace PO given.
[2019-08-21] MEDS: FERROUS SULF 325 MG (IRON) TAB PO SCH (08:58)
[2019-08-21] MEDS: DOCUSATE SODIUM 100 MG (COLACE) CAP PO SCH (08:58)
[2019-08-21] MEDS: PRENATAL VITAMIN 1 EA TAB PO SCH (08:58)
--- NOTE | 2019-08-21 13:26 | NUR ---
Discharge instructions and medications reviewed with patient both written and verbally. Patient verbalizes understanding and questions answered.
== END 2019-08-21 14:39 | disposition home or self-care (01) | DRG 806 ==
LOC: WSo 11:19 → LDRP 11:20 → WSo 11:56 → LDRP 11:57
PROVIDERS: ADMIT Obstetrics & Gynecology; ATTEND Obstetrics & Gynecology
PROC: 10D07Z6 Extraction of Products of Conception, Vacuum, Via Natural or Artificial Opening (ICD-10-PCS; principal; 2019-08-19)
PROC: 0W8NXZZ Division of Female Perineum, External Approach (ICD-10-PCS; 2019-08-19)
DX: O99.344 Other mental disorders complicating childbirth (principal); O76 Abnormality in fetal heart rate and rhythm complicating labor and delivery; O90.81 Anemia of the puerperium; D62 Acute posthemorrhagic anemia; O69.82X0 Labor and delivery complicated by other cord entanglement, without compression, not applicable or unspecified; F41.0 Panic disorder [episodic paroxysmal anxiety]; Z3A.39 39 weeks gestation of pregnancy; Z37.0 Single live birth
CPT/HCPCS: 36415; 81000; 85007; 85025; 85027; 86850; 86900; 86901; 99212